=== PATIENT | female | born 1995 | race Two or more races ===

== ENCOUNTER 2025-05-15 16:50 | Emergency (ER) | payer MEDICAID, OTHER ==
[~2025-05-15] VITALS: Ht 154.9 cm; Wt 46.6 kg
--- NOTE | 2025-05-15 18:10 | ED.PDOC ---
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 Patient states, that she is currently and has been experiencing suprapubic abdominal pain with associated cramping x1day. No nausea or vomiting. No urinary symptoms. Patient reports LMP to have been on 04/11/25, states that she had a positive test at another facility, however, unclear when. Denies any current vaginal bleeding, vaginal discharge, nausea, vomiting, trauma, injury, or fall. No other symptoms or modifying factors are present at this time. 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 Family History Family History: Unknown Social History Smoker: Non-Smoker Alcohol: Denies ETOH Use Drugs: Denies Drug Use Lives In: Home Constitutional: denies: chills, diaphoresis, fatigue, fever, malaise, sweats, weakness, others EENTM: denies: blurred vision, double vision, ear bleeding, ear discharge, ear drainage, ear pain, ear ringing, eye pain, eye redness, hearing loss, mouth pain, mouth swelling, nasal discharge, nose bleeding, nose congestion, nose pain, photophobia, tearing, throat pain, throat swelling, voice changes, others Respiratory: denies: cough, hemoptysis, orthopnea, SOB at rest, shortness of breath, SOB with excertion, stridor, wheezing, others Cardiovascular: denies: chest pain, dizzy spells, diaphoresis, Dyspnea on exertion, edema, irregular heart beat, left arm pain, lightheadedness, palpitations, PND, syncope, others Gastrointestinal: reports: abdominal pain, others (abdominal cramping); denies: abdomen distended, blood streaked bowels, constipated, diarrhea, dysphagia, difficulty swallowing, hematemesis, melena, nausea, poor appetite, poor fluid in take, rectal bleeding, rectal pain, vomiting Genitourinary: denies: abnormal vagina bleeding, burning, dyspareunia, dysuria, flank pain, frequency, hematuria, incontinence, pain, , vagina discharge, urgency, others Neurological: denies: dizziness, fainting, headache, left sided numbness, left sided weakness, numbness, paresthesia, pre-existing deficit, right sided numbness, right sided weakness, seizure, speech problems, tingling, tremors, weakness, others Musculoskeletal: denies: back pain, gout, joint pain, joint swelling, muscle pain, muscle stiffness, neck pain, others Integumetry: denies: bruises, change in color, change in hair/nails, dryness, laceration, lesions, lumps, rash, wounds, others Allergic/Immunocompromised: denies: Difficulty Healing, Frequent Infections, Hives, Itching, others Hematologic/Lymphatic: denies: anemia, blood clots, easy bleeding, easy bruis ing, swollen glands, others Endocrine: denies: excessive hunger, excessive sweating, excessive thirst, exc essive urination, flushing, intolerance to cold, intolerance to heat, unexplained weight gain, unexplained weight loss, others Psychiatric: denies: anxiety, bipolar disorder, depression, hopeless, panic disorder, schizophrenia, sleepless, suicidal, others All Other Systems: Reviewed and Negative Physical Exam General Appearance: No Apparent Distress, Normal HEENT: Normal ENT Inspection, Pharynx Normal Neck: Full Range of Motion, Non-Tender, Normal, Normal Inspection Respiratory: Chest Non-Tender, Lungs Clear, No Accessory Muscle Use, No Respiratory Distress, Normal Breath Sounds Cardiovascular: No Edema, No Murmur, No Gallop, Normal Peripheral Pulses, Regular Rate/Rhythm Breast Exam: Deferred Gastrointestinal: No Organomegaly, Non Tender, No Pulsatile Mass, Normal Bowel Sounds, Soft, Other (Mild suprapubic fullness, however, no tenderness) Genitalia: Deferred Pelvic: Deferred Rectal: Deferred Extremities: No calf tenderness, Normal capillary refill, Normal inspection, Normal range of motion, Non-tender, No pedal edema Musculoskeletal : Apperance: Normal Neurologic: Alert, color technician II-XII nml as Tested, No Motor Deficits, Normal Affect, Normal Mood, No Sensory Deficits Cerebellar Function: Normal Reflexes: Normal Skin: Dry, Normal Color, Warm Lymphatic: No Adenopathy Was a procedure done? Was a procedure done?: No Differential Diagnosis (LABEL PRESS OPERATOR) Vaginal Bleeding: Ectopic , UTI, Other (Uterine Fibroids) Comments X-Ray, Labs, Meds, VS Vital Signs Date Time Temp Pulse Resp B/P (MAP) Pulse Ox O2 Delivery O2 Flow Rate FiO2 05/15/25 20:21 98.7 95 12 110/80 (90) 98 98.7 05/15/25 16:56 97.8 117 20 121/93 97 97.8 Lab Test 05/15/25 18:46 05/15/25 18:09 Range/Units Urine Color Colorless Yellow Urine Clarity Clear Clear Urine pH 6.5 5.0-9.0 Urine Specific [place] 1.003 1.001-1.035 Urine Protein Negative Negative Urine Ketones Negative Negative Urine Blood Negative Negative /uL Urine Nitrite Negative Negative Urine Bilirubin Negative Negative Urine Urobilinogen Normal Negative mg/dL Urine Leukocyte Esterase Negative Negative /uL Urine RBC None seen 0 - 4 /hpf Urine Microscopic WBC 2 0-5 /HPF Urine Squamous Epithelial Cells Few <5 /hpf Urine Bacteria Few H None Seen /hpf Urine Glucose Normal Normal mg/dL Urine Test Negative Negative White Blood Count 16.3 H 4.4-10.8 10^3/uL Red Blood Count 4.51 4.0-5.20 10^6/uL Hemoglobin 15.1 12.2-16.2 g/dL Hematocrit 42.3 36.0-46.0 % Mean Corpuscular Volume 93.8 80.0-100.0 fL Mean Corpuscular Hemoglobin 33.6 H 28.0-32.0 pg Mean Corpuscular Hemoglobin Concent 35.8 32.0-36.0 g/dL Red Cell Distribution Width 14.3 11.8-14.3 % Platelet Count 314 140-450 10^3/uL Mean Platelet Volume 8.8 6.9-10.8 fL Neutrophils (%) (Auto) 37.0-80.0 % Lymphocytes (%) (Auto) 10.0-50.0 % Monocytes (%) (Auto) 0.0-12.0 % Basophils (%) (Auto) 0.0-2.0 % Neutrophils # (Auto) 1.6-8.6 10 ^3/uL Lymphocytes # (Auto) 0.4-5.4 10 ^3/uL Monocytes # (Auto) 0-1.3 10 ^3/uL Differential Total Cells Counted 100.0 100 Neutrophils % (Manual) 70 37.0-80.0 Band Neutrophils % (Manual) 2 Lymphocytes % (Manual) 20 10.0-50.0 Monocytes % (Manual) 7 0-12 Eosinophils % (Manual) 1 0-7 Basophils % (Manual) 0 0.0-2.0 Metamyelocytes % (manual) 0 Myelocytes % (Manual) 0 Promyelocytes % (Manual) 0 Blast Cells % (Manual) 0 Reactive Lymphocytes 0 Platelet Estimate Adequate Large Platelets Few Anisocytosis (manual) Moderate Sodium Level 141 136-145 mmol/L Potassium Level 3.6 3.5-5.1 mmol/L Chloride Level 104 98-107 mmol/L Carbon Dioxide Level 25 20-31 mmol/L Anion Gap 12 5-15 Blood Urea Nitrogen < 5 L 9-23 mg/dL Creatinine 0.72 0.550-1.02 mg/dL Glomerular Filtration Rate Calc 115 >90 mL/min BUN/Creatinine Ratio 6.9 L 10.0-20.0 Serum Glucose 94 74-106 mg/dL Calcium Level 10.0 8.7-10.4 mg/dL Beta HCG, Quantitative 0.8 L 1.5-4.2 mIU/mL Time of 1ST Reevaluation: 18:30 Reevaluation 1ST: Unchanged Time of 2ND Reevaluation: 20:35 (Patient denying any for pain. Declines any additional workup, imaging. Will be discharged as requested.) Patient Education/Counseling: Diagnosis, Treatment Family Education/Counseling: No Family Present Departure 1 Departure Time of Disposition: 20:37 (30-year-old female with no past medical history presenting for evaluation of lower abdominal fullness over the past few days, stating that she is currently . Reports her last menstrual cycle being approximately 4 weeks ago. Allegedly had a positive test at another facility. However, here her urine test and serum blood test are both negative. Given negative test does not seem concerning for ectopic or other complications related to early . Patient with lower abdominal discomfort, however, no specific urinary symptoms, urinalysis does not seem consistent with UTI. CBC with no evidence of critical leukocytosis or significant anemia, metabolic panel with no evidence of acute electrolyte abnormalities. Patient does have some lower abdominal fullness, consider possible uterine fibroids, ovarian cyst, ovarian mass. She appears relatively comfortable, not concerning for ovarian torsion. This lower abdominal fullness I recommended a CT of the abdomen and pelvis. However, patient declined. She is still adamant that she is despite 2 negative tests here today. Pt given a one time dose of oral Tylenol, ibuprofen. She will be discharged as requested. However, recommended to follow up with outpatient primary care doctor, blow molder for further workup of her lower abdominal fullness to ensure that she does not any pelvic masses, malignancy.) Impression: Primary Impression: Lower abdominal pain Disposition: HOME / SELF CARE / HOMELESS Condition: Stable Additional Instructions: Your urine and blood test were both negative. You are not currently . It was recommended that you get a CT scan, however, you declined. Please follow up with a blow molder for further outpatient workup. You may need further imaging to ensure that you do not have any ovarian masses, cysts, uterine fibroids or other things that would cause lower abdominal swelling with a negative test. Discharged With: Self Critical Care Note Critical Care Time?: No Stability Stability form required: No Heart Score Heart Score: Heart Score Response (Comments) Value History N/A 0 EKG N/A 0 Age N/A 0 Risk Factors N/A 0 Troponin N/A 0 Total 0 I personally scribed for IVÁN MAYEN MD ([employer]) on 05/15/25 at 18:10. Electronically submitted by Fauzia Pastor ([employer]). I personally scribed for IVÁN MAYEN MD ([employer]) on 05/15/25 at 18:18. Electronically submitted by Fauzia Pastor ([employer]). IVÁN MAYNE MD May 15, 2025 18:10
[2025-05-15 18:24] LABS: Hematocrit 42.3 % (36.0-46.0); Hemoglobin 15.1 g/dL (12.2-16.2); Mean Corpuscular Hemoglobin 33.6 pg (28.0-32.0); Mean Corpuscular Volume 93.8 fL (80.0-100.0)
[2025-05-15 18:31] LABS: Chloride 104 mmol/L (98-107); Potassium 3.6 mmol/L (3.5-5.1); Sodium 141 mmol/L (136-145)
[2025-05-15 18:32] LABS: Anion Gap 12 (5-15); Carbon Dioxide 25 mmol/L (20-31)
[2025-05-15 18:33] LABS: Calcium 10.0 mg/dL (8.7-10.4)
[2025-05-15 18:37] LABS: Glucose 94 mg/dL (74-106)
[2025-05-15 18:47] LABS: BUN/Creatinine Ratio 6.9 (10.0-20.0); Blood Urea Nitrogen < 5 mg/dL (9-23)
[2025-05-15 19:01] LABS: Urine Protein, UAD Negative (Negative)
[2025-05-15 19:40] LABS: Anisocytosis Moderate; Total Cells Counted 100.0 (100)
[2025-05-15 20:21] VITALS: BP 110/80; PULSE 95; RESP 12; TEMP 98.7; O2SAT 98
[2025-05-15] MEDS: IBUPROFEN 400 MG TAB PO ONE (20:30)
[2025-05-15] MEDS: ACETAMINOPHEN 325 MG TAB PO ONE (20:31)
[2025-05-15] MEDS: IOHEXOL 300 MG/ML 100ML BOTTLE IJ ONE (20:34)
== END 2025-05-15 20:53 | disposition home or self-care (01) ==
LOC: ER 16:50
DX: O26.91 Pregnancy related conditions, unspecified, first trimester (principal); R10.30 Lower abdominal pain, unspecified; R10.20 Pelvic and perineal pain unspecified side; Z79.899 Other long term (current) drug therapy; Z32.02 Encounter for pregnancy test, result negative; Z3A.00 Weeks of gestation of pregnancy not specified
CPT/HCPCS: 36415; 80048; 81001; 81025; 84702; 85007; 85027